=== PATIENT | male | born 1995 | race Caucasian/White ===

== ENCOUNTER 2018-05-02 03:48 | Emergency (ER) | payer MEDICAID ==
[2018-05-02] MEDS: OLANZapine DISINTEGR 10 MG TAB PO ONE ×2 (04:02→04:53)
[2018-05-02] MEDS: OLANZapine 10 MG/2 ML VIAL IM ONE ×2 (04:04→04:51)
[2018-05-02] MEDS ORDERED: OLANZapine 10 MG/2 ML VIAL ONE (04:06)
--- NOTE | 2018-05-02 06:12 | EDPHY ---
H & P Stated Complaint: acid, etoh, aggressive Source: Patient, EMS Exam Limitations: Intoxication - Personal History Current Tetanus Diphtheria and Acellular Pertussis (TDAP): Unsure - Medical/Surgical History Hx Asthma: No Hx Chronic Respiratory Disease: No Hx Diabetes: No Hx Cardiac Disease: No Hx Renal Disease: No Hx Cirrhosis: No Hx Alcoholism: No Hx HIV/AIDS: No Hx Splenectomy or Spleen Trauma: No - Social History Smoking Status: Current some day smoker Time Seen by Provider: 05/02/18 03:51 HPI/ROS: HPI The patient presents with bizarre aggressive behavior, brought in by police and paramedics. He was found on [facility] and approached a group of people shoveling snow. He took a shovel from someone and began to throw it around. 911 was called. The patient admits to drinking alcohol and using LSD tonight. He is unsure quantities of both. He denies any injuries. REVIEW OF SYSTEMS 10 systems were reviewed and negative with the exception of the elements mentioned in the history of present illness. PMHx: Denies diabetes or hypertension Soc Hx: Alcohol and LSD use PHYSICAL General Appearance: Alert, agitated Eyes: Pupils equal and round no pallor or injection ENT, Mouth: Mucous membranes moist Respiratory: There are no retractions, lungs are clear to auscultation Cardiovascular: Tachycardic rate and regular rhythm Gastrointestinal: Abdomen is soft and non-tender, no masses, bowel sounds normal Neurological: A&O, moves all extremities Skin: Warm and dry, no rashes Musculoskeletal: Neck is supple non tender Extremities: symmetrical, full range of motion Psychiatric: Patient is oriented X 3, there is agitation (Riguzzi,Leticia) Constitutional: Initial Vital Signs Temperature (C) 36.8 C 05/02/18 03:53 Heart Rate 116 H 05/02/18 03:53 Respiratory Rate 17 05/02/18 03:53 Blood Pressure 156/102 H 05/02/18 03:53 O2 Sat (%) 96 05/02/18 03:53 O2 Delivery Mode Room Air O2 (L/minute) 3 Allergies/Adverse Reactions: No Known Allergies Allergy (Unverified 05/02/18 04:17) Home Medications: Medication Instructions Recorded NK [No Known Home Meds] 05/02/18 Medical Decision Making Differential Diagnosis: 22-year-old healthy male presents brought in by ambulance with bizarre aggressive behavior. He admits to LSD and alcohol use. He denies any injuries. I met the paramedics at the bedside to obtain their report. Patient was persistently agitated, thus he was given Zyprexa IM which allowed him to rest. Differential diagnosis includes alcohol intoxication, LSD intoxication, less likely head injury. Patient was stable after receiving Zyprexa, sleeping, with normal vital signs. The case will be signed out to the oncoming provider Dr. Holland. I anticipate that once the patient is awake will be able to go home. (Leticia Zavala) 7:45 p.m. the patient is easily arousable. He is ambulatory. He wishes to go home. He will take a taxi. (Robert Holland) - Data Points Medications Given: Discontinued Medications Olanzapine (Zyprexa Zydis) 10 mg PO EDNOW ONE Stop: 05/02/18 03:53 Last Admin: 05/02/18 04:53 Dose: Not Given Olanzapine (Zyprexa Injection) 10 mg IM EDNOW ONE Stop: 05/02/18 04:04 Last Admin: 05/02/18 04:04 Dose: 10 mg Departure - Departure Disposition: Home, Routine, Self-Care Clinical Impression: Agitation, Lysergic acid diethylamide (LSD) abuse Alcoholic intoxication Qualifiers: Complication of substance-induced condition: with delirium Qualified Code(s): F10.921 - Alcohol use, unspecified with intoxication delirium Condition: Good Instructions: Polysubstance Abuse (ED) Referrals: Merry Garcia MD [place] [place] - As per Instructions
[2018-05-02 07:54] VITALS: BP 135/80
== END 2018-05-02 08:00 | disposition home or self-care (01) ==
DX: R45.1 Restlessness and agitation (principal); F16.10 Hallucinogen abuse, uncomplicated; F10.921 Alcohol use, unspecified with intoxication delirium